=== PATIENT | female | born 1990 | race Caucasian/White ===

== ENCOUNTER 2018-04-03 14:03 | Emergency (ER) | payer OTHER ==
[2018-04-03] MEDS ORDERED: ORPHENADRINE CITRATE 30 MG/ML ML ONE (15:07)
== END 2018-04-03 15:42 | disposition home or self-care (01) ==
LOC: EDH 14:03
DX: M54.2 Cervicalgia (principal); M54.6 Pain in thoracic spine; Z88.0 Allergy status to penicillin; Z98.890 Other specified postprocedural states; V59.49XA Driver of pick-up truck or van injured in collision with other motor vehicles in traffic accident, initial encounter; Y93.89 Activity, other specified; Y92.89 Other specified places as the place of occurrence of the external cause; Y99.8 Other external cause status
CPT/HCPCS: 72040; 72070; 73560 ×2; 96372; 99283; J2360